=== PATIENT | male | born 1965 | race Caucasian/White ===

== ENCOUNTER 2023-05-28 11:02 | Outpatient (OUT) | payer BC, SELFPAY ==
[2023-05-28 11:53] LABS: INR 1.26; Partial Thromboplastin Time 25.9 sec (22.3-36.2); Prothrombin Time 13.2 sec (9.0-11.6)
== END 2023-05-28 11:03 | disposition home or self-care (01) ==
LOC: LAB 11:06
PROVIDERS: PCP Family Medicine; Visit Provider Otolaryngology
DX: Z01.812 Encounter for preprocedural laboratory examination (principal); J32.9 Chronic sinusitis, unspecified
CPT/HCPCS: 36415; 85610; 85730